=== PATIENT | male | born 1995 | race African-American/Black ===

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

== ENCOUNTER 2017-02-04 02:27 | Emergency (ER) | payer OTHER ==
[2017-02-04 04:33] VITALS: BP 120/74
== END 2017-02-04 04:33 | disposition home or self-care (01) ==
LOC: ED 02:27
DX: L60.0 Ingrowing nail (principal)

== ENCOUNTER 2017-02-28 15:17 | Emergency (ER) | payer OTHER ==
[~2017-02-28] VITALS: Ht 177.8 cm; Wt 61.2 kg
[2017-02-28 16:11] VITALS: BP 135/82
== END 2017-02-28 16:11 | disposition home or self-care (01) ==
LOC: ED 15:17
DX: L60.0 Ingrowing nail (principal)
CPT/HCPCS: J2001

== ENCOUNTER 2017-05-18 10:58 | Emergency (ER) | payer OTHER ==
[~2017-05-18] VITALS: Ht 177.8 cm; Wt 62.8 kg
[2017-05-18 12:51] VITALS: BP 115/95
== END 2017-05-18 12:51 | disposition home or self-care (01) ==
LOC: ED 10:58
DX: S60.131A Contusion of right middle finger with damage to nail, initial encounter (principal); X58.XXXA Exposure to other specified factors, initial encounter; Y93.89 Activity, other specified; Y99.8 Other external cause status; Y92.89 Other specified places as the place of occurrence of the external cause
CPT/HCPCS: J1885

== ENCOUNTER 2017-09-27 21:43 | Emergency (ER) | payer OTHER ==
[~2017-09-27] VITALS: Ht 175.3 cm; Wt 64.5 kg
[2017-09-27 21:48] VITALS: Ht 175.3 cm; Wt 64.5 kg
[2017-09-27 23:31] VITALS: BP 135/71
== END 2017-09-27 23:31 | disposition home or self-care (01) ==
LOC: ED 21:43
DX: J06.9 Acute upper respiratory infection, unspecified (principal); J31.0 Chronic rhinitis

== ENCOUNTER 2018-11-29 11:41 | Emergency (ER) | payer SELFPAY ==
[~2018-11-29] VITALS: Ht 175.3 cm; Wt 64.4 kg
[2018-11-29 11:48] VITALS: BP 139/66; Ht 175.3 cm; Wt 64.4 kg
== END 2018-11-29 13:30 | disposition home or self-care (01) ==
LOC: ED 11:41
DX: H61.23 Impacted cerumen, bilateral (principal); F17.210 Nicotine dependence, cigarettes, uncomplicated; F12.90 Cannabis use, unspecified, uncomplicated; L30.9 Dermatitis, unspecified
CPT/HCPCS: 82962; 99406

== ENCOUNTER 2018-12-02 14:02 | Emergency (ER) | payer SELFPAY ==
[~2018-12-02] VITALS: Ht 175.3 cm; Wt 63.5 kg
[2018-12-02 14:27] VITALS: Ht 175.3 cm; Wt 63.5 kg
[2018-12-02 15:58] LABS: BASOPHIL % 0.3 % (0-2); PLATELET COUNT 170 x10^3mcL (130-400); RED CELL DISTRIBUTION WIDTH 13.3 % (11.5-14.5)
[2018-12-02 16:26] LABS: CALCIUM 9.2 mg/dL (8.5-10.1); CARBON DIOXIDE 26.8 mmol/L (21-32); CHLORIDE SERUM 107 mmol/L (98-107); CREATININE SERUM 0.9 mg/dL (0.7-1.3); GFR1 > 60 mL/min; GLUCOSE SERUM 105 mg/dL (74-106); POTASSIUM SERUM 4.1 mmol/L (3.5-5.1); SODIUM SERUM 143 mmol/L (136-145)
[2018-12-02 16:33] LABS: ALBUMIN 4.3 g/dL (3.4-5.0); ALKALINE PHOSPHATASE 64 U/L (46-116); ALT/SGPT 24 U/L (16-63); AMYLASE 113 U/L (25-115); AST/SGOT 20 U/L (15-37); BILIRUBIN TOTAL 0.51 mg/dL (0.20-1.00); LIPASE 77 IU/L (73-393); TOTAL PROTEIN, SERUM 7.6 g/dL (6.4-8.2)
[2018-12-02 17:10] LABS: AMPHETAMINE QUAL UR NONE DETECTED (See below)
[2018-12-02 17:26] VITALS: BP 125/79
== END 2018-12-02 17:26 | disposition home or self-care (01) ==
LOC: ED 14:02
PROVIDERS: Specialist
DX: R53.1 Weakness (principal); R11.10 Vomiting, unspecified; F10.99 Alcohol use, unspecified with unspecified alcohol-induced disorder
CPT/HCPCS: G0480; J2405; J7030